=== PATIENT | male | born 1955 | race Caucasian/White ===

== ENCOUNTER 2023-01-14 10:27 | Inpatient (IN) | payer OTHER ==
[~2023-01-14] VITALS: Ht 175.3 cm; Wt 84.5 kg
[2023-01-14 11:00] LABS: BASOPHILS ABSOLUTE AUTO 0.08 K/mm3 (0.00-0.23); BASOPHILS PERCENT AUTO 0 % (0-2); EOSINOPHILS PERCENT AUTO 0 % (0-6); Hematocrit 51.1 % (37.0-53.0); Hemoglobin 17.8 g/dL (13.5-17.5); IMMATURE GRAN ABSOLUTE AUTO 0.35 K/mm3 (0.00-0.10); IMMATURE GRAN PERCENT AUTO 1 % (0-1); LYMPHOCYTES ABSOLUTE AUTO 1.25 K/mm3 (0.84-5.20); LYMPHOCYTES PERCENT AUTO 4 % (21-46); MONOCYTES ABSOLUTE AUTO 2.49 K/mm3 (0.16-1.47); MONOCYTES PERCENT AUTO 7 % (4-13); Mean Corpuscular HGB 29.8 pg (26.0-34.0); Mean Corpuscular HGB Conc 34.8 g/dL (31.5-36.5); Mean Corpuscular Volume 86 fL (80-100); Mean Platelet Volume 10.8 fL (9.1-12.4); NEUTROPHILS PERCENT AUTO 88 % (41-73); Platelet Count 277 K/mm3 (150-400); RDW Coefficient Variation 13.7 % (11.7-14.2); RDW Standard Deviation 42.1 fL (35.1-46.3); Red Blood Cell Count 5.98 M/mm3 (4.30-5.90); White Blood Cell Count 36.07 K/mm3 (4.00-11.30)
[2023-01-14 11:03] LABS: Albumin, Blood 3.6 g/dL (3.4-5.0); Albumin/Globulin Ratio 0.9 (0.8-1.8); Bun/Creatinine Ratio 23.5 (12.0-20.0); Calcium, Blood 9.5 mg/dL (8.5-10.1); Creatinine, Blood 1.79 mg/dL (0.60-1.20); Globulin, Blood 3.8 g/dL (2.2-4.0); Potassium, Blood 4.4 mmol/L (3.5-5.5); Total Protein, Blood 7.4 g/dL (6.4-8.2)
[2023-01-14 11:50] LABS: Influenza A, PCR NEGATIVE (NEGATIVE); Influenza B, PCR NEGATIVE (NEGATIVE); Resp Syncytial Virus, PCR NEGATIVE (NEGATIVE); SARS-Cov-2 (COVID-19) PCR, MMC NEGATIVE (NEGATIVE)
[2023-01-14 13:07] LABS: Magnesium, Blood 1.7 mg/dL (1.6-2.4)
[2023-01-14 13:12] LABS: Source, Urine Clean Catch
[2023-01-14 13:22] LABS: Bilirubin, Urine Neg (Neg); Blood, Urine Neg (Neg); Color, Urine Yellow (P-Yellow); Glucose Qualitative, Urine Neg (Neg); Ketones, Urine Neg (Neg); Leukocyte Esterase, Urine Neg (Neg); Nitrite, Urine Neg (Neg); Protein, Urine 1+ (Neg); Specific Gravity, Urine 1.025 (1.003-1.022); Urobilinogen, Urine NORM (Normal)
[2023-01-14 13:47] LABS: Adenovirus Not Detected (NOT DETECT); Bordetella pertussis Not Detected (NOT DETECT); Chlamydophila pneumoniae Not Detected (NOT DETECT); Coronavirus 229E Not Detected (NOT DETECT); Coronavirus HKU1 Not Detected (NOT DETECT); Coronavirus NL63 Not Detected (NOT DETECT); Coronavirus OC43 Not Detected (NOT DETECT); Human Metapneumovirus Not Detected (NOT DETECT); Human Rhinovirus/Enterovirus Not Detected (NOT DETECT); Influenza A/2009-H1 Not Detected (NOT DETECT); Influenza A/H1 Not Detected (NOT DETECT); Influenza A/H3 Not Detected (NOT DETECT); Influenza B Not Detected (NOT DETECT); Mycoplasma pneumoniae Not Detected (NOT DETECT); Parainfluenza Virus 1 Not Detected (NOT DETECT); Parainfluenza Virus 2 Not Detected (NOT DETECT); Parainfluenza Virus 3 Not Detected (NOT DETECT); Parainfluenza Virus 4 Not Detected (NOT DETECT); Respiratory Syncytial Virus Not Detected (NOT DETECT); SARS-Cov-2 (COVID-19), BioFire Not Detected (NOT DETECT)
[2023-01-14 14:13] LABS: Appearance, Urine Hazy (Clear)
[2023-01-14 14:14] LABS: Mucus Mod (0-Heavy)
[2023-01-14 14:15] LABS: Amorphous Light (0-Heavy); Bacteria Mod /hpf; Red Blood Cells, Urine 0-2 /hpf (0-2); Squamous Epithelial Cells Rare /hpf (Few)
[2023-01-14 16:02] VITALS: BP 119/95
[2023-01-14 16:15] VITALS: BP 118/91
[2023-01-14 16:30] VITALS: BP 152/132
[2023-01-14 18:00] VITALS: BP 127/101
--- NOTE | 2023-01-14 18:04 | NUR ---
Patients friend went home. He has been awake in bed with BiPAP on and RT made new adjustment and is currently 10/5 BU 12, 8L bleed in and sats >93%. He sits at bedside independnetly to use urinal. Gave lasix 40 mg and patient and he only had 150 ml's out. He continues to be able to communicate his needs. Dr Powell by and checked on patient. New Lactic Acid 6.1. Troponin just drawn.
[2023-01-14 19:45] VITALS: BP 123/85
--- NOTE | 2023-01-14 23:32 | NUR ---
ASSUMPTION OF CARE: PATIENT IS ALERT AND ORITENTED X 2-3, HE IS VERY DROWSY AFTER TREATING CIWA. THAT WAS CLOSE TO 15. EXTREME SOB WITHOUT THE BIPAP. OXYGEN DEMAND AND TROP ARE INCREASING CURRENLTY REDRAW TROP LACTIC AND VBG ~2340. PATIENT SAUTRATING WELL RT AWARE OF PATIENT CONDITION, CLEANER AND DYER AWARE, PATIENT IS FULL CODE, DISCUSSED EXTENSIVELY WITH PATIENT STILL WANTS TO BE FULL CODE, WITH CIWA TREATED EKG WAS PREFORMED TO HAVE AN EKG BELOW 100. PATIENT OVERALL MILDLY WORSENING, MULTIPLE CALLS TO RESIDENT, AVASURE IN PLACE. POWERGLIDE PLACED, PATIENT NOT DIURESING WELL. EVEN WITH INCREASED DOSING OF LASIX.
[2023-01-15] VITALS (7 sets, daily range): BP systolic 111–132; BP diastolic 84–115
[2023-01-15 00:11] LABS: Base Excess Venous -2.8 mmol/L; Bicarbonate Venous 22.6 mmol/L (24.0-30.0); pH Blood Venous 7.41 (7.34-7.37)
[2023-01-15 04:02] LABS: Hematocrit 48.1 % (37.0-53.0); Hemoglobin 16.6 g/dL (13.5-17.5); Mean Corpuscular HGB 29.3 pg (26.0-34.0); Mean Corpuscular HGB Conc 34.5 g/dL (31.5-36.5); Mean Corpuscular Volume 85 fL (80-100); Mean Platelet Volume 10.6 fL (9.1-12.4); Platelet Count 227 K/mm3 (150-400); RDW Coefficient Variation 13.6 % (11.7-14.2); RETICULOCYTE ABSOLUTE 0.0822 M/mm3 (0.0200-0.1100); RETICULOCYTE COUNT PERCENT 1.45 % (0.50-2.50); Red Blood Cell Count 5.67 M/mm3 (4.30-5.90); White Blood Cell Count 32.07 K/mm3 (4.00-11.30)
[2023-01-15 04:23] LABS: Albumin/Globulin Ratio 0.8 (0.8-1.8); Bilirubin, Direct 0.1 mg/dL (0.0-0.3); Bilirubin, Indirect 0.6 mg/dL (0.1-0.7); Bilirubin, Total 0.7 mg/dL (0.1-1.0); Bun/Creatinine Ratio 29.4 (12.0-20.0); Calcium, Blood 8.5 mg/dL (8.5-10.1); Creatinine, Blood 1.87 mg/dL (0.60-1.20); Globulin, Blood 3.6 g/dL (2.2-4.0); Phosphorus, Blood 3.1 mg/dL (2.5-4.9); Potassium, Blood 4.3 mmol/L (3.5-5.5); Total Protein, Blood 6.6 g/dL (6.4-8.2)
--- NOTE | 2023-01-15 04:47 | NUR ---
EOS: ONLY CAHNGES FROM ASSUMPTION OF CARE ARE CONTINUED URINE OUTPUT, INCREASED MENTATION, STILL SETTING OF THE BED ALARM, TELESITTER IN PLACE. DENIES CHEST PAIN PRESSURE OR SOB. WAS ABLE TO TAKE ORAL PILLS WITH WATER OK, DOES DESATURATE ON EVEN SMALL BREAKS FROM BIPAP. PATIENT TROPONIN IS STILL TRENDING UP. LACTIC IMPROVED VBG UNREMARABLE. NO OTHER SIGNIFICANT EVENTS THROUGHT HE NIGHT IMPROVED MENTATION, HR STILL 100'S EKG PREFORMED EARLY IN THE SHIFT RESIDENT AWARE, NO NEW ORDERS.
[2023-01-15 05:31] LABS: BASOPHILS PERCENT MAN 0 % (0-2); EOSINOPHILS PERCENT MAN 0 % (0-6); LYMPHOCYTES ABSOLUTE MAN 0.32 K/mm3 (0.84-5.20); LYMPHOCYTES PERCENT MAN 1 % (21-46); MONOCYTES ABSOLUTE MAN 2.24 K/mm3 (0.16-1.47); MONOCYTES PERCENT MAN 7 % (4-13); SEG NEUTROPHILS PERCENT MAN 92 % (41-73); TOTAL CELLS COUNTED 100
[2023-01-15 14:46] LABS: Prothrombin Time Results 13.4 Sec (9.7-11.5)
[2023-01-15 14:53] LABS: Anti-Xa UFH, PHA Monitoring >1.50 IU/mL
--- NOTE | 2023-01-15 17:57 | NUR ---
SHIFT SUMMARY; ASSUMED CARE AT 0700. A/A/OX4. SOB DURING SHIFT AT TIMES, DENIES CP, SATS HIGH 80'S TO LOW 90'S. ALTERNATING BETWEEN BIPAP AND AIRVO. CURRENT AIR VO SETTINGS 30L 40% FIO2. UP IN RECLINER IN EVENING, TOLERATING WELL. PHONE CALL TO RESIDENT THIS AM REGARDING LOW URINE OUTPUT DURING NOC SHIFT. ADJUSTMENTS MADE TO LASIX, MEDICATED PER ORDERS, WILL CONTINUE TO MONITOR. DRINKING SMALL AMOUNTS OF PO FLUIDS, APPETTIE POOR, DECLINES FOOD TRAYS DURING SHIFT. TRACE EMEMA BILATERAL TO LOWER LEGS, L/S DIM T/O. REPEAT RAPID COVID COMPLETED PER ORDER, NEGATIVE RESULTS, NOTIFIED PROVIDER AND GENERAL ENGINEER LUISA MALLORY TO REMOVE FROM ISOLATION PER MOHAMUD. WILL CONTINUE TO MONITOR AND TREAT UNTIL CHANGE OF SHIFT.
[2023-01-16 03:06] VITALS: BP 131/100
[2023-01-16 03:12] LABS: Hematocrit 45.9 % (37.0-53.0); Hemoglobin 16.2 g/dL (13.5-17.5); Platelet Count 224 K/mm3 (150-400)
--- NOTE | 2023-01-16 06:10 | NUR ---
PATIENT AOX4. CIWA SCORE OF 0. BEDSIDE CAMERA ON PATIENT DUE TO IMPULSIVE BEHAVIOR (GETTING OOB AND REMOVING OXYGEN). SR/ST WITH STABLE BP. PATIENT ALTERNATING BETWEEN AIRVO 30L 40% AND BIPAP WITH 12L BLEED IN. VOIDING IN URINAL AND HAS 1.5L FLUID RESTRICTION. HEPARIN GTT STARTED OVERNIGHT.
[2023-01-16 07:17] VITALS: BP 142/103
[2023-01-16 07:27] LABS: Hematocrit 46.7 % (37.0-53.0); Mean Corpuscular HGB 29.1 pg (26.0-34.0); Mean Corpuscular HGB Conc 34.3 g/dL (31.5-36.5); Mean Corpuscular Volume 85 fL (80-100); Mean Platelet Volume 11.7 fL (9.1-12.4); Platelet Count 232 K/mm3 (150-400); RDW Coefficient Variation 13.3 % (11.7-14.2); RDW Standard Deviation 41.6 fL (35.1-46.3); Red Blood Cell Count 5.49 M/mm3 (4.30-5.90); White Blood Cell Count 23.98 K/mm3 (4.00-11.30)
[2023-01-16 07:40] LABS: Albumin, Blood 2.7 g/dL (3.4-5.0); Albumin/Globulin Ratio 0.8 (0.8-1.8); Bilirubin, Total 0.8 mg/dL (0.1-1.0); Bun/Creatinine Ratio 37.6 (12.0-20.0); Calcium, Blood 8.3 mg/dL (8.5-10.1); Creatinine, Blood 1.73 mg/dL (0.60-1.20); Globulin, Blood 3.6 g/dL (2.2-4.0); Total Protein, Blood 6.3 g/dL (6.4-8.2)
[2023-01-16 07:47] LABS: Potassium, Blood 3.9 mmol/L (3.5-5.5)
[2023-01-16 09:02] LABS: BAND PERCENT MAN 1 % (0-8); BASOPHILS PERCENT MAN 0 % (0-2); EOSINOPHILS PERCENT MAN 0 % (0-6); LYMPHOCYTES ABSOLUTE MAN 0.47 K/mm3 (0.84-5.20); LYMPHOCYTES PERCENT MAN 2 % (21-46); MONOCYTES ABSOLUTE MAN 2.63 K/mm3 (0.16-1.47); MONOCYTES PERCENT MAN 11 % (4-13); NEUTROPHILS ABSOLUTE MAN 20.86 K/mm3 (1.96-9.15); SEG NEUTROPHILS PERCENT MAN 86 % (41-73); TOTAL CELLS COUNTED 100
--- NOTE | 2023-01-16 09:16 | NUR ---
Pt resting in bed and is A&OX4. Pt denies pain, dyspnea, nausea, and anxiety. Pt reports not being and has a girlfriend. Pt reports having children who live out of area and is not close with them. Brief education on disease process including trajectory. Engaged in therapeutic discussion regarding code status wishes. Educated on life sustaining treatments including risks and implications to CPR/Intubation. Pt reports wishes are Full Code. Pt does not engage in conversation much. Ended visit to allow Pt to rest. Spoke with Primary RN Brittany and discussed case. Palliative Care will remain available
[2023-01-16 12:07] VITALS: BP 126/77
--- NOTE | 2023-01-16 18:02 | NUR ---
SHIFT SUMMARY; ASSUMED CARE AT 0700, A/A/OX4. REPOSITIONS SELF IN BED NEEDED. IMPULSIVE AND DOESN'T USE CALL LIGHT. VIDEO MONITORING IN PLACE, CALLED SEVERAL TIMES FOR PT GETTING OUT OF BED OWN HIS OWN. BED ALARM SET. 02 TITRATED DOWN TO 5L VIA NC BY RT. SAT IN RECLINER CHAIR FOR SEVERAL HOURS,USING URINAL. IN AFTERNOON BACK IN BED, DIAPHERTIC AND SLIGHT TREMOR. MEDICATED FOR ETOH WITHDRAWL PER ORDERS WITH 2MG IV ATIVAN. BIPAP PLACED DUE TO SLEEPING POST ATIVAN WITH 7L BLEED IN. WAKES TO VERBAL STIMULI. DECREASED TREMORS AND DIAPHERESIS RESOLVED AFTER ATIVAN, WILL CONTINUE TO MONITOR. 02 SATS 98% ON BIPAP. REPORT TO BE GIVEN TO ONCOMING HOP FARM WORKER RN TO ASSUME CARE.
[2023-01-16 20:39] VITALS: BP 136/100
[2023-01-17] VITALS: BP 105/55
[2023-01-17 03:36] VITALS: BP 117/95
--- NOTE | 2023-01-17 05:18 | NUR ---
SHIFT SUMMARY ASSUMED CARE OF PT AT 1900. PT IS A/OX4. HEART SOUNDS REGULAR. LUNG SOUNDS HAVE CRACKLES AT BASES AND L SIDE. PT WAS ON BOTH 7L NC AND BIPAP T/O THE NOC. PT USED URINAL DURING THE NOC. PT COMPLIANT WITH FLUID RESTRICTION.
[2023-01-17 07:09] VITALS: BP 101/61
[2023-01-17 08:12] LABS: Hematocrit 45.8 % (37.0-53.0); Hemoglobin 15.9 g/dL (13.5-17.5); Mean Corpuscular HGB 29.6 pg (26.0-34.0); Mean Corpuscular HGB Conc 34.7 g/dL (31.5-36.5); Mean Corpuscular Volume 85 fL (80-100); Mean Platelet Volume 11.3 fL (9.1-12.4); Platelet Count 241 K/mm3 (150-400); RDW Coefficient Variation 13.3 % (11.7-14.2); RDW Standard Deviation 41.4 fL (35.1-46.3); Red Blood Cell Count 5.38 M/mm3 (4.30-5.90); White Blood Cell Count 17.31 K/mm3 (4.00-11.30)
[2023-01-17 08:36] LABS: BASOPHILS PERCENT MAN 0 % (0-2); Bun/Creatinine Ratio 35.5 (12.0-20.0); Calcium, Blood 8.1 mg/dL (8.5-10.1); EOSINOPHILS PERCENT MAN 0 % (0-6); LYMPHOCYTES % ATYPICAL MANUAL 1 % (0-0); LYMPHOCYTES ABSOLUTE MAN 0.86 K/mm3 (0.84-5.20); LYMPHOCYTES PERCENT MAN 4 % (21-46); MONOCYTES ABSOLUTE MAN 2.25 K/mm3 (0.16-1.47); MONOCYTES PERCENT MAN 13 % (4-13); NEUTROPHILS ABSOLUTE MAN 14.19 K/mm3 (1.96-9.15); Potassium, Blood 3.9 mmol/L (3.5-5.5); SEG NEUTROPHILS PERCENT MAN 82 % (41-73); TOTAL CELLS COUNTED 100
[2023-01-17 12:00] VITALS: BP 99/69
[2023-01-17 15:56] VITALS: BP 115/88
--- NOTE | 2023-01-17 17:47 | NUR ---
SHIFT SUMMARY; ASSUMED CARE AT 0700, A/A/OX3 DURING SHIFT. REPOSITIONS SELF IN BED, IMPULSIVE AT TIMES WITH GETTING UP AND DOESN'T USE CALL LIGHT. BED ALARM SET, VIDEO MONITORING IN PLACE. 02 RA-2L, L/S CLEAR T/O. SAT IN RECLINER CHAIR FOR A FEW HOURS, WORKED WITH PT, USES URINAL AT BEDSIDE. 1500ML FLUID RESTRICTION ORDERS. NO ACUTE MEDICAL CHANGES, NO S/S OF ETOH WITHDRAWL, WILL CONTINUE TO MONITOR AND TREAT UNTIL CHANGE OF SHIFT.
[2023-01-17 20:10] VITALS: BP 125/82
[2023-01-18] VITALS (8 sets, daily range): BP systolic 94–128; BP diastolic 56–94
[2023-01-18 00:16] LABS: BASOPHILS ABSOLUTE AUTO 0.03 K/mm3 (0.00-0.23); BASOPHILS PERCENT AUTO 0 % (0-2); EOSINOPHILS ABSOLUTE AUTO 0.03 K/mm3 (0.00-0.68); EOSINOPHILS PERCENT AUTO 0 % (0-6); Hematocrit 44.9 % (37.0-53.0); Hemoglobin 15.6 g/dL (13.5-17.5); IMMATURE GRAN ABSOLUTE AUTO 0.11 K/mm3 (0.00-0.10); IMMATURE GRAN PERCENT AUTO 1 % (0-1); LYMPHOCYTES ABSOLUTE AUTO 1.57 K/mm3 (0.84-5.20); LYMPHOCYTES PERCENT AUTO 10 % (21-46); MONOCYTES ABSOLUTE AUTO 2.17 K/mm3 (0.16-1.47); MONOCYTES PERCENT AUTO 14 % (4-13); Mean Corpuscular HGB 29.2 pg (26.0-34.0); Mean Corpuscular HGB Conc 34.7 g/dL (31.5-36.5); Mean Corpuscular Volume 84 fL (80-100); Mean Platelet Volume 11.7 fL (9.1-12.4); NEUTROPHILS ABSOLUTE AUTO 11.92 K/mm3 (1.96-9.15); NEUTROPHILS PERCENT AUTO 75 % (41-73); Platelet Count 261 K/mm3 (150-400); RDW Coefficient Variation 13.2 % (11.7-14.2); RDW Standard Deviation 40.2 fL (35.1-46.3); Red Blood Cell Count 5.35 M/mm3 (4.30-5.90); White Blood Cell Count 15.83 K/mm3 (4.00-11.30)
[2023-01-18 00:29] LABS: Albumin, Blood 2.6 g/dL (3.4-5.0); Albumin/Globulin Ratio 0.7 (0.8-1.8); Bilirubin, Total 0.5 mg/dL (0.1-1.0); Bun/Creatinine Ratio 38.7 (12.0-20.0); Creatinine, Blood 1.86 mg/dL (0.60-1.20); Globulin, Blood 3.6 g/dL (2.2-4.0); Potassium, Blood 3.6 mmol/L (3.5-5.5); Total Protein, Blood 6.2 g/dL (6.4-8.2)
--- NOTE | 2023-01-18 04:47 | NUR ---
SHIFT SUMMARY ASSUMED CARE OF PT AT 1900. PT IS A/OX4 BUT IMPULSIVE AND WONT USE CALL LIGHT. HEART SOUNDS REGULAR. LUNG SOUNDS DIMINISHED T/O. PT WAS ON 2L NC T/O THE NOC. PT HAD SLEEP STUDY DONE BUT WAS AWAKE OFTEN COUGHING MOST OF THE KNOCK. COUGH UNPRODUCTIVE; PT JUST COMPLAINTED OF A TICKLE IN HIS THROAT. PT DESAT TO 80S WHEN ATUALLY SLEEPING. PT NPO SINCE MIDNIGHT.
--- NOTE | 2023-01-18 16:00 | NUR ---
SHIFT SUMMARY ALERT, ORIENTED, PLEASANT, COOPERATIVE. COMPLIANT THIS SHIFT WITH CALLING APPROPRIATELY AND WITH FLUID RESTRICTION. AVASURE CAMERA DISCONTINUED DURING AFTERNOON. DURING AM PATIENT APPEARED TO BE OVERLOADED WITH INCREASED WORK OF BREATHING, INCREASED O2 DEMAND, NEW DRY COUGH OVERNIGHT, LS WITH CRACKLES IN BASES. BNP JUMPED FROM 900 TO 1700 ON AM LABS. LAST DIURETIC WAS 0840 ON 01/17/23. PATIENT WAS NPO FOR PLANNED RIGHT HEART CATH WITH DR HALL. DISCUSSED DIURETIC WITH DR DOSHI DURING AM, WAS TOLD TO WAIT UNTIL AFTER PROCEDURE THEN DIURETIC WOULD BE RESTARTED. PATIENT WAS SOMEWHAT WEAK AND SBA FROM RECLINER TO BED. HEPARIN GTT RUNNING PER PHARMACY ORDERS. TELE 1ST DEGREE, BBB IN 70'S, BECAME BRADYCARDIC 48-50'S AFTER AM PO METOPROLOL. BP REMAINED TABLE. WENT TO ELECTRIC LOCOMOTIVE FIRER/FIREMAN DURING AM WITH DR HALL. PER PROCEDURE REPORT PATIENT HAS HIGH CARDIAC PRESSURES, PULM HTN, AND LOW CARDIAC OUTPUT. RECOMMENDATIONS IN DR HALL'S SUMMARY. REPORT PRINTED AND HANDED TO DR ORLY CALLEJAS STATED HE WILL FOLLOW UP ABOUT 1700. HEPARIN GTT CONTINUED, CARDIAC DIET ORDERED. DR HALL GAVE VERBAL ORDER FOR 2 MG BUMEX IV ONCE, THIS WAS COMPLETED. PATIENT REPORTED AN IMPROVEMENT IN HIS WORK OF BREATHING AND COUGH. URINE OUTPUT INCREASED. RESTING IN BED AT THIS TIME. REPROT GIVEN TO MEGHAN GARCIA RN TO ASSUME CARE AT 1540.
--- NOTE | 2023-01-18 16:27 | NUR ---
ASSUMED CARE THIS RN ASSUMED CARE OF PT AT 1540. PT IS QUIETLY RESTING IN BED. VSS AT TIME OF TRANSFER. HEPARIN INFUSING PER EMAR, VERIFIED WITH MILLY RN. SEE PREVIOUS SHIFT SUMMARY NOTE REGARDING CHANGES T/O SHIFT. THIS RN WILL CONTINUE TO MONITOR PT UNTIL END OF SHIFT AND REPORT TO ONCOMING NOC RN.
--- NOTE | 2023-01-18 18:02 | NUR ---
END OF SHIFT NOTE NO ACUTE EVENTS FOLLOWING TRANSFER OF CARE NOTE. VSS AT THIS TIME. HEPARIN INFUSING PER EMAR, RATE CHANGE VERIFIED WITH SEEMA CLAY; MANAGED BY PHARMACY. BED ALARM ON, CALL LIGHT WITHIN REACH. WILL REPORT TO ONCOMING TEODORO RN.
--- NOTE | 2023-01-18 18:40 | NUR ---
PHYSICIAN CONTACT CALL PLACED TO MD VILLALBA REGARDING PLAN OF CARE FOR PT. PER PHYSICIAN, NEPHROLOGY WILL BE CONSULTED TO DETERMINE FURTHER TREATMENT PLAN. CONTINUE DIURESIS; CONSIDERATION FOR TRANSFER WILL BE MADE IF CURRENT TREATMENT IS UNSUCCESSFUL. NO NEW ORDERS RECEIVED AT TIME OF CONTACT.
[2023-01-19] VITALS (43 sets, daily range): BP systolic 101–133; BP diastolic 69–100
--- NOTE | 2023-01-19 04:53 | NUR ---
SHIFT SUMMARY PT A/OX4 AND COOPERATIVE OF CARE. PT ABLE TO EXPRESS NEEDS AND CALLS APPROPIATE. PT VSS THTOUGHOUT SHIFT WITH O2 SATS IN THE 90'S ON 6L NC. PT ABLE TO AMBULATE TO TOILET FOR BM, REPORTED SOB ONCE BACK TO BED, TOLERATED FAIR. NO REPORT OF CHEST PAIN/PRESSURE THROUGHOUT SHIFT. PT SLEPT WITH CPAP ON, TOLERATED WELL. HEP GTT TITRATED PER ORDER, SEE ORDER. BED ALARM IN PLACE, NO ALARMS DURING SHIFT. BED I LOWEST POSITION, CALL LIGHT WITHIN REACH.
[2023-01-19 06:23] LABS: BASOPHILS ABSOLUTE AUTO 0.03 K/mm3 (0.00-0.23); BASOPHILS PERCENT AUTO 0 % (0-2); EOSINOPHILS ABSOLUTE AUTO 0.03 K/mm3 (0.00-0.68); EOSINOPHILS PERCENT AUTO 0 % (0-6); Hematocrit 44.3 % (37.0-53.0); Hemoglobin 15.4 g/dL (13.5-17.5); IMMATURE GRAN ABSOLUTE AUTO 0.13 K/mm3 (0.00-0.10); IMMATURE GRAN PERCENT AUTO 1 % (0-1); LYMPHOCYTES ABSOLUTE AUTO 1.51 K/mm3 (0.84-5.20); LYMPHOCYTES PERCENT AUTO 8 % (21-46); MONOCYTES ABSOLUTE AUTO 2.27 K/mm3 (0.16-1.47); MONOCYTES PERCENT AUTO 13 % (4-13); Mean Corpuscular HGB 29.4 pg (26.0-34.0); Mean Corpuscular HGB Conc 34.8 g/dL (31.5-36.5); Mean Corpuscular Volume 85 fL (80-100); Mean Platelet Volume 11.8 fL (9.1-12.4); NEUTROPHILS ABSOLUTE AUTO 14.22 K/mm3 (1.96-9.15); NEUTROPHILS PERCENT AUTO 78 % (41-73); NRBC ABSOLUTE 0.02 K/mm3 (0.00-0.02); NRBC Auto 0.1 /100 WBC (0.0-0.2); Platelet Count 244 K/mm3 (150-400); RDW Coefficient Variation 13.2 % (11.7-14.2); RDW Standard Deviation 40.4 fL (35.1-46.3); Red Blood Cell Count 5.23 M/mm3 (4.30-5.90); White Blood Cell Count 18.19 K/mm3 (4.00-11.30)
[2023-01-19 07:03] LABS: Albumin, Blood 2.5 g/dL (3.4-5.0); Albumin/Globulin Ratio 0.8 (0.8-1.8); Bilirubin, Total 0.6 mg/dL (0.1-1.0); Bun/Creatinine Ratio 36.6 (12.0-20.0); Calcium, Blood 7.8 mg/dL (8.5-10.1); Creatinine, Blood 1.64 mg/dL (0.60-1.20); Globulin, Blood 3.3 g/dL (2.2-4.0); Potassium, Blood 3.5 mmol/L (3.5-5.5); Total Protein, Blood 5.8 g/dL (6.4-8.2)
--- NOTE | 2023-01-19 11:04 | NUR ---
Bedside shift report given to OBED Reyes. Heparin gtt verified dose and infusion rate.
--- NOTE | 2023-01-19 13:13 | NUR ---
Assumed care of patient at approx 1030. I am in aagreement with previous RNs assessment. VSS. Call from Dr Debbie Gabriel, new orders to transfer to ICU for dobutamine gtt. Report given to RN assuming care of patient.
--- NOTE | 2023-01-19 18:59 | NUR ---
SHIFT SUMMARY PATIENT REMAINS ON DOBUTAMINE GTT. HR TOUCHES 110'S, BUT THEN RETURNS TO 90'S-100'S. OVER 700ML URINE OUT THIS SHIFT. BP STABLE. HEPARIN REMAINS AT 21 UNITS/KG/HR. BEDSIDE REPORT COMPLETED WITH OBED OSMAN.
--- NOTE | 2023-01-19 19:00 | NUR ---
ASSUME CARE: I have assumed care of this patient.
[2023-01-20] VITALS (64 sets, daily range): BP systolic 93–137; BP diastolic 64–94
[2023-01-20 03:37] LABS: BASOPHILS ABSOLUTE AUTO 0.03 K/mm3 (0.00-0.23); BASOPHILS PERCENT AUTO 0 % (0-2); EOSINOPHILS ABSOLUTE AUTO 0.13 K/mm3 (0.00-0.68); EOSINOPHILS PERCENT AUTO 1 % (0-6); Hematocrit 41.7 % (37.0-53.0); Hemoglobin 14.7 g/dL (13.5-17.5); IMMATURE GRAN ABSOLUTE AUTO 0.09 K/mm3 (0.00-0.10); IMMATURE GRAN PERCENT AUTO 1 % (0-1); LYMPHOCYTES ABSOLUTE AUTO 1.68 K/mm3 (0.84-5.20); LYMPHOCYTES PERCENT AUTO 12 % (21-46); MONOCYTES ABSOLUTE AUTO 1.74 K/mm3 (0.16-1.47); MONOCYTES PERCENT AUTO 12 % (4-13); Mean Corpuscular HGB 29.3 pg (26.0-34.0); Mean Corpuscular HGB Conc 35.3 g/dL (31.5-36.5); Mean Corpuscular Volume 83 fL (80-100); Mean Platelet Volume 11.5 fL (9.1-12.4); NEUTROPHILS ABSOLUTE AUTO 10.34 K/mm3 (1.96-9.15); NEUTROPHILS PERCENT AUTO 74 % (41-73); Platelet Count 237 K/mm3 (150-400); RDW Coefficient Variation 13.1 % (11.7-14.2); RDW Standard Deviation 39.1 fL (35.1-46.3); Red Blood Cell Count 5.01 M/mm3 (4.30-5.90); White Blood Cell Count 14.01 K/mm3 (4.00-11.30)
[2023-01-20 04:00] LABS: Albumin, Blood 2.5 g/dL (3.4-5.0); Albumin/Globulin Ratio 0.7 (0.8-1.8); Bilirubin, Total 0.7 mg/dL (0.1-1.0); Bun/Creatinine Ratio 29.3 (12.0-20.0); Calcium, Blood 7.8 mg/dL (8.5-10.1); Creatinine, Blood 1.5 mg/dL (0.60-1.20); Globulin, Blood 3.5 g/dL (2.2-4.0); Potassium, Blood 3.4 mmol/L (3.5-5.5)
[2023-01-20 05:23] LABS: Magnesium, Blood 2.3 mg/dL (1.6-2.4)
--- NOTE | 2023-01-20 06:49 | NUR ---
SHIFT SUMMARY: Dobutamine titrated up to 5 mcg/kg/min per Dr Gutierrez's note. Pt is tolerating this well and states he feels less fatigued. Potassium replaced. Pt up to bedside using urinal to void. Good UOP overnight.
--- NOTE | 2023-01-20 07:24 | NUR ---
ASSUMED CARE PATIENT IS LYING IN BED AWAKE. 2LPM VIA NC IN PLACE WITH SPO2 HIGH 90'S. HEPARIN INF @ 20 UNITS/KG/HR, DOBUTAMINE @ 5 MCG/KG/MIN, AND KCL 40MEQ INF. HEPARIN AND DOBUTAMINE VERIFIED WITH OBED OSMAN AT BEDSIDE. URINAL ON BEDSIDE WITH 275ML URINE. CALL LIGHT IN REACH. NO FAMILY AT BEDSIDE. BEDSIDE REPORT COMPLETED WITH OBED OSMAN.
--- NOTE | 2023-01-20 10:27 | NUR ---
DR. HALL AT BEDSIDE REQUESTED DOBUTMAINE BE SLOWLY TITRATED UP TO 10MCG/KG/HR LONG PATIENT TOLERATES AND HR REMAINS BELOW 110 BEATS PER MINUTE. SEE ICU FLOWSHEET FOR TITRATIONS.
--- NOTE | 2023-01-20 18:13 | NUR ---
SHIFT SUMMARY PATIENT REMAINS ON DOBUTAMINE GTT. ATTEMPTED TO INCREASE TO 6 MCG/KG/HR, BUT PATIENT BECAME TACHYCARDIC. DR. HALL NOTIFIED AND RATE DECREASED BACK TO 5MCG/KG/HR AND REMAINS AT THAT RATE. 40MEQ KCL IV INF THIS SHIFT AND REPEAT POTASSIUM LEVEL RESULTED AT 3.1. CALL MADE TO DR. THOMAS AND ORDER RECEIVED FOR 40MEQ KCL IV X 1 NOW THEN RECHECK POTASSIUM LEVEL WITH AM LABS. PATIENT HAD OVER 1800ML URINE OUT THIS SHIFT AND 420ML PO FLUID IN. NO OTHER CHANGES THIS SHIFT.
--- NOTE | 2023-01-20 19:00 | NUR ---
ASSUME CARE: I have assumed care of this patient.
--- NOTE | 2023-01-20 23:15 | NUR ---
REPORT: Given to OBED Salmon.
[2023-01-21] VITALS (90 sets, daily range): BP systolic 88–153; BP diastolic 51–105
[2023-01-21 03:26] LABS: BASOPHILS ABSOLUTE AUTO 0.02 K/mm3 (0.00-0.23); BASOPHILS PERCENT AUTO 0 % (0-2); EOSINOPHILS ABSOLUTE AUTO 0.16 K/mm3 (0.00-0.68); EOSINOPHILS PERCENT AUTO 1 % (0-6); Hemoglobin 14.8 g/dL (13.5-17.5); IMMATURE GRAN ABSOLUTE AUTO 0.08 K/mm3 (0.00-0.10); IMMATURE GRAN PERCENT AUTO 1 % (0-1); LYMPHOCYTES ABSOLUTE AUTO 1.37 K/mm3 (0.84-5.20); LYMPHOCYTES PERCENT AUTO 11 % (21-46); MONOCYTES ABSOLUTE AUTO 1.42 K/mm3 (0.16-1.47); MONOCYTES PERCENT AUTO 11 % (4-13); Mean Corpuscular HGB 29.2 pg (26.0-34.0); Mean Corpuscular HGB Conc 35.2 g/dL (31.5-36.5); Mean Corpuscular Volume 83 fL (80-100); Mean Platelet Volume 10.9 fL (9.1-12.4); NEUTROPHILS ABSOLUTE AUTO 9.77 K/mm3 (1.96-9.15); NEUTROPHILS PERCENT AUTO 76 % (41-73); Platelet Count 238 K/mm3 (150-400); RDW Coefficient Variation 13.1 % (11.7-14.2); RDW Standard Deviation 38.9 fL (35.1-46.3); Red Blood Cell Count 5.07 M/mm3 (4.30-5.90); White Blood Cell Count 12.82 K/mm3 (4.00-11.30)
[2023-01-21 03:55] LABS: Albumin, Blood 2.5 g/dL (3.4-5.0); Albumin/Globulin Ratio 0.7 (0.8-1.8); Bilirubin, Total 0.6 mg/dL (0.1-1.0); Calcium, Blood 8.1 mg/dL (8.5-10.1); Creatinine, Blood 1.46 mg/dL (0.60-1.20); Globulin, Blood 3.5 g/dL (2.2-4.0); Magnesium, Blood 2.1 mg/dL (1.6-2.4); Thyroid Stimulating Hormone 1.17 uIU/mL (0.360-4.800)
--- NOTE | 2023-01-21 06:14 | NUR ---
SHIFT SUMMARY ASSUMED CARE 1145~. VSS. PT RESTING QUIETLY T/O NIGHT. CONTINUES TO DENY CP, SOB, OR NAUSEA. DOBUTAMINE GTT @ 5MCG/KG/MIN; CONTINUES TO HAVE GOOD URINE OUTPUT. PT USES CALL LIGHT APPROPRIATELY. NO ACUTE EVENTS OVERNIGHT.
[2023-01-21 09:23] LABS: Bun/Creatinine Ratio 21.7 (12.0-20.0); Calcium, Blood 8.1 mg/dL (8.5-10.1); Creatinine, Blood 1.52 mg/dL (0.60-1.20); Potassium, Blood 3.4 mmol/L (3.5-5.5)
--- NOTE | 2023-01-21 15:40 | NUR ---
PATIENT TO CNC MANAGER. DOBUTAMINE GTT @ 5MCG/KG/MIN.
--- NOTE | 2023-01-21 17:10 | NUR ---
BACK FROM FENCE MAKER PATIENT ARRIVED BACK FROM FENCE MAKER. DOBUTMAINE GTT INCREASED FROM 5MCG/KG/MIN TO 6MCG/KG/MIN BY FENCE MAKER. TR BAND TO RT RADIAL WITH 11CC AIR INFLATED ACCORDING TO HC NURSE. NO SIGNS OF BLEEDING, OOZING, SWELLING, OR HEMATOMA. PATIENT DENIES CP OR DYSPNEA.
--- NOTE | 2023-01-21 19:50 | NUR ---
SHIFT SUMMARY PATIENT HAD ANGIO THIS AFTERNOON WITH NO INTERVENTION. TR IN PLACE TO RT RADIAL. 1CC AIR REMOVED WITH NO EVIDENCE OF BLEEDING, HEMATOMA, OR PAIN. STRONG PULSE PRESENT. TOTAL OF 10CC REMAINS. PATIENT HAD GOOD URINE OUTPUT T/O SHIFT DOBUTAMINE AT 6MCG/KG/HR. NO BM THIS SHIFT. NO OTHER CHANGES THIS SHIFT.
[2023-01-22] VITALS (22 sets, daily range): BP systolic 91–120; BP diastolic 62–99
[2023-01-22 06:30] LABS: BASOPHILS ABSOLUTE AUTO 0.02 K/mm3 (0.00-0.23); BASOPHILS PERCENT AUTO 0 % (0-2); EOSINOPHILS ABSOLUTE AUTO 0.14 K/mm3 (0.00-0.68); EOSINOPHILS PERCENT AUTO 1 % (0-6); Hematocrit 47.8 % (37.0-53.0); Hemoglobin 17.2 g/dL (13.5-17.5); IMMATURE GRAN ABSOLUTE AUTO 0.12 K/mm3 (0.00-0.10); IMMATURE GRAN PERCENT AUTO 1 % (0-1); LYMPHOCYTES PERCENT AUTO 9 % (21-46); MONOCYTES ABSOLUTE AUTO 1.53 K/mm3 (0.16-1.47); MONOCYTES PERCENT AUTO 11 % (4-13); Mean Corpuscular HGB 29.2 pg (26.0-34.0); Mean Corpuscular Volume 81 fL (80-100); Mean Platelet Volume 10.5 fL (9.1-12.4); NEUTROPHILS PERCENT AUTO 79 % (41-73); Platelet Count 304 K/mm3 (150-400); RDW Coefficient Variation 12.7 % (11.7-14.2); RDW Standard Deviation 37.3 fL (35.1-46.3); Red Blood Cell Count 5.89 M/mm3 (4.30-5.90); White Blood Cell Count 14.41 K/mm3 (4.00-11.30)
[2023-01-22 06:56] LABS: Albumin, Blood 2.9 g/dL (3.4-5.0); Albumin/Globulin Ratio 0.7 (0.8-1.8); Bilirubin, Total 0.8 mg/dL (0.1-1.0); Bun/Creatinine Ratio 23.5 (12.0-20.0); Calcium, Blood 8.7 mg/dL (8.5-10.1); Creatinine, Blood 1.53 mg/dL (0.60-1.20); Potassium, Blood 3.2 mmol/L (3.5-5.5); Total Protein, Blood 6.9 g/dL (6.4-8.2)
--- NOTE | 2023-01-22 11:56 | NUR ---
REASSESSMENT PT HAS BEEN UP IN THE CHAIR THIS MORNING AND ALSO TOOK A SHOWER. HE DENIES CHEST PAIN THROUGHOUT THE ACTIVITY. REMAINS SR WITH 1ST DEGREE AVB. DR. SANDOVAL ROUNDED THIS AM AND ORDERED FOR PT TO START ON PLAVIX AND FOR A BNP LEVEL. LUNGS ARE CLEAR. 2L/NC REQUIRED TO KEEP SPO2 ABOVE 90%. TOLERATING DIET. VOIDING INDEPENDENTLY. CONTINUING TO MONITOR.
--- NOTE | 2023-01-22 16:53 | NUR ---
SHIFT SUMMARY PT HAS CONTINUED TO GET UP TO THE CHAIR AND MOVE AROUND THROUGHOUT THE ROOM WITHOUT ANY CHEST PAIN. BP HAS REMAINED STABLE WITH THE DOBUTAMINE OFF. SR WITH FIRST DEGREE AVB. LUNGS CLEAR, ON 2L/NC. POOR APPETITE, EATING 10-20% OF HIS MEALS. VOIDING USING THE URINAL. CONTINUING TO MONITOR.
[2023-01-23] VITALS (23 sets, daily range): BP systolic 82–122; BP diastolic 59–108
[2023-01-23 05:56] LABS: BASOPHILS ABSOLUTE AUTO 0.05 K/mm3 (0.00-0.23); BASOPHILS PERCENT AUTO 0 % (0-2); EOSINOPHILS ABSOLUTE AUTO 0.31 K/mm3 (0.00-0.68); EOSINOPHILS PERCENT AUTO 2 % (0-6); Hematocrit 52.3 % (37.0-53.0); Hemoglobin 18.4 g/dL (13.5-17.5); IMMATURE GRAN ABSOLUTE AUTO 0.12 K/mm3 (0.00-0.10); IMMATURE GRAN PERCENT AUTO 1 % (0-1); LYMPHOCYTES ABSOLUTE AUTO 2.03 K/mm3 (0.84-5.20); LYMPHOCYTES PERCENT AUTO 15 % (21-46); MONOCYTES ABSOLUTE AUTO 1.83 K/mm3 (0.16-1.47); MONOCYTES PERCENT AUTO 13 % (4-13); Mean Corpuscular HGB 28.7 pg (26.0-34.0); Mean Corpuscular HGB Conc 35.2 g/dL (31.5-36.5); Mean Corpuscular Volume 82 fL (80-100); Mean Platelet Volume 10.4 fL (9.1-12.4); NEUTROPHILS ABSOLUTE AUTO 9.28 K/mm3 (1.96-9.15); NEUTROPHILS PERCENT AUTO 68 % (41-73); Platelet Count 337 K/mm3 (150-400); RDW Standard Deviation 38.1 fL (35.1-46.3); Red Blood Cell Count 6.42 M/mm3 (4.30-5.90); White Blood Cell Count 13.62 K/mm3 (4.00-11.30)
--- NOTE | 2023-01-23 05:56 | NUR ---
SHIFT SUMMARY: NO ACUTE CHANGES OVERNIGHT; VITAL SIGNS STABLE THROUGHOUT THE NIGHT. PT A&O X 4; PLEASANT AND COOPERATIVE WITH CARE. PT MOSTLY INDEPENDENT IN ROOM BUT WILL CALL WHEN NEEDED. PT ON NC @ 2LPM WITH SPO2 94<, LUNGS CLEAR THROUGHOUT, AND PT DENIES SOB. PT SR ON MONITOR WITH HR 70-80'S, SBP 100'S; PT DENIES CHEST PAIN AT THIS TIME. PT HAD SLIGHT HEADACHE AT THE START OF SHIFT BUT RELIEVED WITH PRN TYLENOL. PT USING URINAL INDEPENDENTLY AND TOLERATING PO INTAKE. BED LOWERED, CALL LIGHT IN REACH, WILL REPORT OFF TO ONCOMING RN.
[2023-01-23 06:30] LABS: Albumin, Blood 2.9 g/dL (3.4-5.0); Albumin/Globulin Ratio 0.7 (0.8-1.8); Bilirubin, Total 0.7 mg/dL (0.1-1.0); Bun/Creatinine Ratio 24.7 (12.0-20.0); Calcium, Blood 9.1 mg/dL (8.5-10.1); Creatinine, Blood 1.86 mg/dL (0.60-1.20); Globulin, Blood 4.2 g/dL (2.2-4.0); Potassium, Blood 2.8 mmol/L (3.5-5.5); Total Protein, Blood 7.1 g/dL (6.4-8.2)
--- NOTE | 2023-01-23 13:00 | NUR ---
TELEHEALTH VISIT W/ DR. HERNADEZ COMPLETED AT BEDSIDE.
[2023-01-23 14:21] LABS: Bun/Creatinine Ratio 23.5 (12.0-20.0); Calcium, Blood 8.9 mg/dL (8.5-10.1); Creatinine, Blood 2.17 mg/dL (0.60-1.20); Potassium, Blood 3.3 mmol/L (3.5-5.5)
--- NOTE | 2023-01-23 18:16 | NUR ---
SUMMARY PT A/O X4, UP INDEP IN ROOM. DENIES CP OR PRESSURE. NO ACUTE CHANGES THIS SHIFT. SPOKE WITH DR. SANDOVAL ABOUT STATUS CHANGE AND HE WAS GOING TO CONSULT WITH HOSPITALIST, NO NEW ORDERS.
[2023-01-24] VITALS (11 sets, daily range): BP systolic 80–108; BP diastolic 66–91
[2023-01-24 04:57] LABS: BASOPHILS ABSOLUTE AUTO 0.06 K/mm3 (0.00-0.23); BASOPHILS PERCENT AUTO 0 % (0-2); EOSINOPHILS PERCENT AUTO 1 % (0-6); Hematocrit 50.4 % (37.0-53.0); Hemoglobin 17.8 g/dL (13.5-17.5); IMMATURE GRAN ABSOLUTE AUTO 0.16 K/mm3 (0.00-0.10); IMMATURE GRAN PERCENT AUTO 1 % (0-1); LYMPHOCYTES ABSOLUTE AUTO 1.99 K/mm3 (0.84-5.20); LYMPHOCYTES PERCENT AUTO 13 % (21-46); MONOCYTES ABSOLUTE AUTO 1.38 K/mm3 (0.16-1.47); MONOCYTES PERCENT AUTO 9 % (4-13); Mean Corpuscular HGB 28.8 pg (26.0-34.0); Mean Corpuscular HGB Conc 35.3 g/dL (31.5-36.5); Mean Corpuscular Volume 82 fL (80-100); Mean Platelet Volume 10.5 fL (9.1-12.4); NEUTROPHILS ABSOLUTE AUTO 11.62 K/mm3 (1.96-9.15); NEUTROPHILS PERCENT AUTO 75 % (41-73); Platelet Count 365 K/mm3 (150-400); RDW Coefficient Variation 12.9 % (11.7-14.2); RDW Standard Deviation 38.3 fL (35.1-46.3); Red Blood Cell Count 6.18 M/mm3 (4.30-5.90); White Blood Cell Count 15.41 K/mm3 (4.00-11.30)
[2023-01-24 05:20] LABS: Albumin, Blood 2.8 g/dL (3.4-5.0); Anion Gap 7 mmol/L (6-16); Blood Urea Nitrogen 54 mg/dL (8-24); Bun/Creatinine Ratio 25.8 (12.0-20.0); CO2, Blood 30 mmol/L (21-32); Calcium, Blood 8.3 mg/dL (8.5-10.1); Chloride, Blood 94 mmol/L (98-108); Creatinine, Blood 2.09 mg/dL (0.60-1.20); Glomerular Filtration Rate 34 (60-); Glucose, Blood 108 mg/dL (70-99); Phosphorus, Blood 4.1 mg/dL (2.5-4.9); Potassium, Blood 3.2 mmol/L (3.5-5.5); Sodium, Blood 131 mmol/L (136-145)
--- NOTE | 2023-01-24 06:10 | NUR ---
SHIFT SUMMARY: NO ACUTE CHANGES OVERNIGHT; VSS THROUGHOUT THE SHIFT. PT REMAINS A&O X 4, PLEASANT AND COOPERATIVE WITH CARE. PT INDEPENDENT IN ROOM BUT WILL CALL FOR HELP APPROPRIATELY. PT NC @ 2LPM WITH SPO2 94< AND PT DENIES SOB AT THIS TIMEL LUNGS CLEAR THROUGHOUT. PT TOLERATING PO INTAKE; DENIES ABD PAIN. PT USING URINAL INDEPENDENTLY. PT SLEPT ON AND OFF THROUGHOUT THE NIGHT. BED LOWERED, CALL LIGHT IN REACH, WILL REPORT OFF TO ONCOMING RN.
--- NOTE | 2023-01-24 10:07 | NUR ---
PT A/O X4. UP INDEP IN ROOM. TOOK O2 OFF THIS AM AND SPO2 REMAINS ABOVE 90%. MD'S HAVE ROUNDED ON PT THIS AM AND PT IS SUPPOSED TO BE DISCHARGED. NO SIGN OF DISTRESS. USES CALL LIGHT APPROPRIATELY.
[2023-01-24] MEDS ORDERED: ASPI81CH PO (11:12)
[2023-01-24] MEDS ORDERED: ELIQUIS5 M2 PO (11:12)
[2023-01-24] MEDS ORDERED: LIPITOR80 MG PO (11:13)
[2023-01-24] MEDS ORDERED: BUME1 PO (11:13)
[2023-01-24] MEDS ORDERED: CLOP75 PO (11:14)
[2023-01-24] MEDS ORDERED: LOSA25 PO (11:14)
[2023-01-24] MEDS ORDERED: METO25ER PO (11:15)
[2023-01-24] MEDS ORDERED: POTA10T PO (11:15)
--- NOTE | 2023-01-24 13:34 | NUR ---
PT D/C.... PT D/C HOME, WRITTEN AND VERBAL DISCHARGE AND NEW MEDICATION EDUCATION/INFORMATION PROVIDED TO THE PT. PT VERBALIZED HIS UNDERSTANDING. ALL PT BELONGINGS WERE PACKED AND SENT WITH THE PT. ALL IVs AND POWERGILDE TO THE SOULEYMANE REMOVED WNL. PT WAS ESCORTED TO THE EXIT VIA W/C.
== END 2023-01-24 13:00 | disposition home or self-care (01) | DRG 871 ==
LOC: EDBD 10:27 → ER 10:27 → PCU 13:33 → ICUE 13:33 → PCU 15:28 → ICUE 01-19 13:08
PROVIDERS: Family Medicine; Family Medicine Adult Medicine; Student in an Organized Health Care Education/Training Program; ADMIT Internal Medicine
PROC: 5A09357 Assistance with Respiratory Ventilation, Less than 24 Consecutive Hours, Continuous Positive Airway Pressure (ICD-10-PCS; 2023-01-14)
PROC: 5A0935A Assistance with Respiratory Ventilation, Less than 24 Consecutive Hours, High Flow/Velocity Cannula (ICD-10-PCS; 2023-01-16)
PROC: 3E03329 Introduction of Other Anti-infective into Peripheral Vein, Percutaneous Approach (ICD-10-PCS; 2023-01-16)
PROC: 4A023N6 Measurement of Cardiac Sampling and Pressure, Right Heart, Percutaneous Approach (ICD-10-PCS; 2023-01-18)
PROC: 4A023N7 Measurement of Cardiac Sampling and Pressure, Left Heart, Percutaneous Approach (ICD-10-PCS; principal; 2023-01-21)
PROC: B2111ZZ Fluoroscopy of Multiple Coronary Arteries using Low Osmolar Contrast (ICD-10-PCS; 2023-01-21)
PROC: B241ZZ3 Ultrasonography of Multiple Coronary Arteries, Intravascular (ICD-10-PCS; 2023-01-21)
DX: A41.9 Sepsis, unspecified organism (principal); I21.4 Non-ST elevation (NSTEMI) myocardial infarction; I50.21 Acute systolic (congestive) heart failure; I63.9 Cerebral infarction, unspecified; R57.0 Cardiogenic shock; J96.21 Acute and chronic respiratory failure with hypoxia; J15.69 Pneumonia due to other Gram-negative bacteria; N17.9 Acute kidney failure, unspecified; E87.29 Other acidosis; J44.0 Chronic obstructive pulmonary disease with (acute) lower respiratory infection; I13.0 Hypertensive heart and chronic kidney disease with heart failure and stage 1 through stage 4 chronic kidney disease, or unspecified chronic kidney disease; E87.3 Alkalosis; Z51.5 Encounter for palliative care; F10.90 Alcohol use, unspecified, uncomplicated; K70.10 Alcoholic hepatitis without ascites; M25.552 Pain in left hip; F12.90 Cannabis use, unspecified, uncomplicated; I25.5 Ischemic cardiomyopathy; I27.20 Pulmonary hypertension, unspecified; E66.9 Obesity, unspecified; I48.0 Paroxysmal atrial fibrillation; G47.33 Obstructive sleep apnea (adult) (pediatric); N18.30 Chronic kidney disease, stage 3 unspecified; I25.10 Atherosclerotic heart disease of native coronary artery without angina pectoris; Z11.52 Encounter for screening for COVID-19; Z86.73 Personal history of transient ischemic attack (TIA), and cerebral infarction without residual deficits; Z60.2 Problems related to living alone; Z68.30 Body mass index [BMI] 30.0-30.9, adult
CPT/HCPCS: 0202U; 0241U; 36415; 36416; 71045; 71046; 76937; 80048; 80053; 80069; 81001; 82248; 82803; 83605; 83735; 83880; 84100; 84132; 84145; 84443; 84484; 85014; 85018; 85025; 85045; 85049; 85520; 85610; 85730; 87040; 87086; 93005; 93010; 93451; 93454; 94640; 94644; 94660; 94664; 94761; 94762; 96365; 96367; 96375; 97162; 97165; 97530; 99285-25; A9270; C1751; C1769; C1887; C1894; C8929; J0456; J0696; J1250; J1644; J1650; J1940; J2060; J2250; J3010; J3480; J7030; J7050; J7512; Q9957; Q9967